=== PATIENT | male | born 1970 | race African-American/Black ===

== ENCOUNTER 2017-10-06 22:00 | Emergency (ER) ==
--- NOTE | 2017-10-06 22:51 | RAD ---
RIGHT KNEE FOUR VIEW 10/06/17 HISTORY: Pain. recent knee replacement. COMPARISON: None. FINDINGS: There is a large joint effusion. Constrained type knee arthroplasty is present. No perihardware lucen cy. No hardware fracture. IMPRESSION: Large joint effusion containing debris. POS: [facility]
[2017-10-06] MEDS ORDERED: Diazepam 5 MG TAB ONE (23:01)
[2017-10-06] MEDS ORDERED: Ketorolac Tromethamine 30 MG/ML VIAL ONE (23:20)
[2017-10-06 23:21] LABS: #Basophils 0.1 thou/uL (0.0-0.2); #Eosinphils 0.2 thou/uL (0.0-0.7); #Lymphocytes 2.3 thou/uL (1.20-3.40); #Monocytes 0.8 thou/uL (0.11-0.59); #Neutrophils 4.2 thou/uL (1.40-6.50); %Basophils 0.8 % (0.0-1.0); %Eosinophils 2.7 % (0.0-10.0); %Lymphocytes 30.8 % (21.0-51.0); %Monocytes 10.7 % (0.0-10.0); Hematocrit 40.6 % (42.0-52.0); Red Blood Cell (RBC) Count 4.33 mill/uL (4.70-6.10); White Blood Cell (WBC) Count 7.6 thou/uL (4.8-10.8)
[2017-10-06 23:40] LABS: ALT (SGPT) 18 U/L (8-55); AST (SGOT) 33 U/L (5-34); Alkaline Phosphatase 53 U/L (40-150); Anion Gap 11 mmol/L (10-20); BUN (Urea Nitrogen) 15 mg/dL (8.9-20.6); Bilirubin, Total 0.5 mg/dL (0.2-1.2); Calc. Creatinine Clearance 0 mL/min (70-130); Calcium 9.4 mg/dL (7.8-10.44); Carbon Dioxide 30 mmol/L (22-29); Chloride 102 mmol/L (98-107); Estimated GFR-MDRD Greater than 90; Globulin 3.6 g/dL (2.4-3.5); Protein, Total 7.7 g/dL (6.0-8.3)
[2017-10-06] MEDS ORDERED: Potassium Chloride 20 MEQ TAB ONE (23:59)
== END 2017-10-07 00:15 | disposition home or self-care (01) ==
LOC: ERS 22:00
DX: M25.561 Pain in right knee (principal); E87.6 Hypokalemia; I10 Essential (primary) hypertension; F41.9 Anxiety disorder, unspecified; Z79.899 Other long term (current) drug therapy; Z96.651 Presence of right artificial knee joint
CPT/HCPCS: 36415; 80053; 85025; 85652; 86140; 96372; J1885

== ENCOUNTER 2022-11-29 19:42 | Emergency (ER) | payer MEDICARE, OTHER ==
[2022-11-29] MEDS ORDERED: Ketorolac Tromethamine 30 MG/ML VIAL ONE (21:41)
== END 2022-11-29 21:48 | disposition home or self-care (01) ==
LOC: ERS 19:42
DX: M25.512 Pain in left shoulder (principal); I10 Essential (primary) hypertension
CPT/HCPCS: 93005; 96372; J1885

== ENCOUNTER 2023-01-11 15:15 | Outpatient (CLI) | payer OTHER | END 2023-01-11 15:16 | disposition home or self-care (01) | LOC: SCSRAD 15:15 | PROVIDERS: ATTEND Family Medicine Sports Medicine | DX: S39.012A Strain of muscle, fascia and tendon of lower back, initial encounter (principal); M53.3 Sacrococcygeal disorders, not elsewhere classified; M46.1 Sacroiliitis, not elsewhere classified; M47.816 Spondylosis without myelopathy or radiculopathy, lumbar region | CPT/HCPCS: 72100; 72202; 72220 ==

== ENCOUNTER 2024-10-25 14:00 | Inpatient (IN) | payer OTHER ==
[2024-10-25 11:59] VITALS: BMI 40.0
[2024-11-06] MEDS ORDERED: Ketorolac Tromethamine 30 MG (1 mL) VIAL ONE (11:25)
[2024-11-06] MEDS ORDERED: Acetaminophen 500 MG TAB ONE (11:25)
[2024-11-06] MEDS ORDERED: Heparin 5,000 UNITS/ML VIAL ONE (11:25)
[2024-11-06] MEDS ORDERED: Bupivacaine 0.25% HCL 30 ML VIAL ONE (12:58)
[2024-11-06] MEDS ORDERED: EPINEPHrine 1 MG/ML VIAL ONE ×2 (12:58→13:52)
[2024-11-06] MEDS ORDERED: Indocyanine Green 25 MG/10 ML VIAL ONE (12:59)
[2024-11-06] MEDS ORDERED: CEFAZOLIN 2 GM VIAL ONE (13:17)
[2024-11-06] MEDS ORDERED: Midazolam HCl 2 mg/2 ml Vial ONE ×2 (13:22→13:24)
[2024-11-06] MEDS ORDERED: PROPOFOL 20 ML ONE (13:24)
[2024-11-06] MEDS ORDERED: Rocuronium Bromide 10 MG/ML (10ML VIAL) ONE (13:24)
[2024-11-06] MEDS ORDERED: fentaNYL PF 100 MCG/2 ML SYRINGE ONE ×2 (13:24→14:55)
[2024-11-06] MEDS ORDERED: Lidocaine 1% (PF) 30 ML VIAL ONE (13:52)
[2024-11-06] MEDS ORDERED: Dexamethasone 20 MG/5 ML VIAL ONE (13:58)
[2024-11-06] MEDS ORDERED: Glycopyrrolate 0.2 MG/ML 5 ML SYRINGE ONE (13:58)
[2024-11-06] MEDS ORDERED: PHENYLEPHRINE-NS 100 MCG/ML 10 ML SYRINGE ONE (13:58)
[2024-11-06] MEDS ORDERED: ePHEDrine Sulfate 50 MG/10 ML VIAL ONE (14:05)
[2024-11-06] MEDS ORDERED: SUGAMMADEX SODIUM 200 MG/2 ML VIAL ONE (15:10)
[2024-11-06] MEDS ORDERED: fentaNYL 50 mcg/mL 1 mL Vial ONE ×2 (16:08→16:30)
[2024-11-06] MEDS ORDERED: Promethazine HCl 25 MG/ML VIAL IM PRN ×2 (16:09→16:19)
[2024-11-06] MEDS ORDERED: Ondansetron HCl/PF 4 MG/2 ML Vial IVP PRN (16:09)
[2024-11-06] MEDS ORDERED: HYDROmorphone 2 MG/ML VIAL SLOW IVP PRN (16:09)
[2024-11-06] MEDS ORDERED: Glucagon 1 MG/ML KIT IM PRN (16:19)
[2024-11-06] MEDS ORDERED: Ondansetron PF 4 MG/2 ML Vial IVP PRN (16:19)
[2024-11-06] MEDS ORDERED: hydrALAZINE 20 MG/ML VIAL SLOW IVP PRN (16:19)
[2024-11-06] MEDS ORDERED: Dextrose 5% in Water 1,000 ML IV PRN (16:19)
[2024-11-06] MEDS ORDERED: Ipratropium/Albuterol 3 ML NEB NEB PRN (16:19)
[2024-11-06] MEDS ORDERED: Dextrose 50% Abboject 50 ML SYRINGE SLOW IVP PRN (16:19)
[2024-11-06] MEDS ORDERED: diphenhydrAMINE 50 MG/ML VIAL IVP PRN (16:19)
[2024-11-06] MEDS: oxyCODONE 5 MG TAB PO PRN (18:24)
[2024-11-06] MEDS: Ketorolac Tromethamine 30 MG (1 mL) VIAL IVP SCH (18:24)
[2024-11-06] MEDS: Gabapentin 300 MG CAP PO SCH (21:44)
[2024-11-06] MEDS: Acetaminophen 650 MG/20.3 ML UDCUP PO SCH (21:44)
[2024-11-06] MEDS: D5 1/2 NS w/20 mEq KCL 1,000 ML IV SCH (21:45)
[2024-11-06] MEDS: tiZANidine HCl 4 MG TAB PO PRN (22:25)
[2024-11-07 06:00] LABS: #Basophils 0.03 10x3/uL (0.0-0.2); #Eosinophils Less than 0.03 10x3/uL (0.0-0.7); %Basophils 0.3 % (0.0-1.0); %Eosinophils 0.1 % (0.0-10.0); %Lymphocytes 14.6 % (21.0-51.0); %Monocytes 9.7 % (0.0-10.0); Hematocrit 37.7 % (42.0-52.0); Hemoglobin 12.6 g/dL (14.0-18.0); Mean Corpuscular HGB CONC 33.4 g/dL (32.0-36.0); Mean Corpuscular Hemoglobin 30.9 pg (27.0-31.0); Mean Corpuscular Volume 92.4 fL (78.0-98.0); Mean Platelet Volume 10.2 fL (7.4-10.4); Platelet Count 215 10x3/uL (130-400); RBC Distribution Width 12.7 % (11.5-14.5); Red Blood Cell (RBC) Count 4.08 mill/uL (4.70-6.10)
[2024-11-07 06:29] LABS: Anion Gap 11 mmol/L (10-20); BUN (Urea Nitrogen) 7 mg/dL (8.4-25.7); Calc. Creatinine Clearance 235 mL/min (70-130); Calcium 8.6 mg/dL (7.8-10.44); Carbon Dioxide 24 mmol/L (22-29); Chloride 105 mmol/L (98-107); Estimated GFR 108; Glucose 109 mg/dL (70-105); Potassium 3.8 mmol/L (3.5-5.1); Sodium 136 mmol/L (136-145)
[2024-11-07] MEDS: Escitalopram Oxalate 10 mg Tablet PO SCH (09:30)
[2024-11-07] MEDS: Atorvastatin Calcium 10 MG TAB PO SCH (09:30)
[2024-11-07] MEDS: Enoxaparin 40 MG (0.4 mL) SYRINGE SC SCH (09:30)
[2024-11-07] MEDS: Lisinopril 10 MG TAB PO SCH (09:30)
[2024-11-07] MEDS: Hydrochlorothiazide 25 MG TAB PO SCH (09:30)
[2024-11-07] MEDS: Pantoprazole 40 MG VIAL IVP SCH (09:30)
[2024-11-07 11:15] VITALS: BP 111/69; TEMP 98.5
[2024-11-08] MEDS ORDERED: FLU (Fluarix Triv) TS24-25(6MOS UP)/PF 45 MCG/0.5 ML Syringe IM ONE (09:00)
== END 2024-11-07 12:15 | disposition home or self-care (01) | DRG 621 ==
LOC: SURG A 11-06 10:44 → EDSTATUS 11-07 14:00
PROVIDERS: ADMIT Specialist; ATTEND Specialist
PROC: 0DB64Z3 Excision of Stomach, Percutaneous Endoscopic Approach, Vertical (ICD-10-PCS; principal; 2024-11-06)
PROC: 8E0W4CZ Robotic Assisted Procedure of Trunk Region, Percutaneous Endoscopic Approach (ICD-10-PCS; 2024-11-06)
DX: E66.01 Morbid (severe) obesity due to excess calories (principal); Z96.653 Presence of artificial knee joint, bilateral; Z68.41 Body mass index [BMI] 40.0-44.9, adult
CPT/HCPCS: 36415; 80048; 85025; 88307; J0171; J0665; J1100; J1644; J1650; J1885; J2250; J2470; J2704; J3010; J3480; S2900